=== PATIENT | female | born 1995 | race Asian ===

== ENCOUNTER 2017-09-10 09:25 | Emergency (ER) | payer OTHER ==
[~2017-09-10] VITALS: Ht 170.2 cm; Wt 56.7 kg
[2017-09-10 09:32] VITALS: BP_SYST 132
[2017-09-10] MEDS ORDERED: IBUPROFEN 600 MG TABLET PO ONE (11:30)
[2017-09-10] MEDS ORDERED: NACL 0.9% 1,000 ML IV ONE (12:45)
[2017-09-10 14:19] VITALS: BP_SYST 128
== END 2017-09-10 14:19 | disposition home or self-care (01) ==
LOC: SED 09:25
DX: J10.1 Influenza due to other identified influenza virus with other respiratory manifestations (principal)
CPT/HCPCS: 36415; 86403; 86710; 87081; 96360; 99284; J7030